=== PATIENT | male | born 1985 | race Caucasian/White ===

== ENCOUNTER 2020-06-01 18:05 | Emergency (ER) | payer OTHER, SELFPAY ==
[2020-06-01 19:47] VITALS: BP 106/79; PULSE 73; RESP 16; TEMP 37.1; O2SAT 98; BMI 22.6
[2020-06-01 19:58] VITALS: BP 108/45; PULSE 69; RESP 18; TEMP 37.1; O2SAT 96
--- NOTE | 2020-06-01 20:43 | ED_ITS ---
HPI - General Adult General Chief complaint: General Medical Stated complaint: ?flatwork Time Seen by Provider: 06/01/20 20:23 Source: patient Mode of arrival: ambulatory Limitations: no limitations History of Present Illness HPI narrative: Patient comes emergency room stating that he has been passing foot wounds and liver flukes in the stool for a month. Patient has no abdominal pain, no vomiting, no diarrhea, no anal itching Related Data Allergies Allergy/AdvReac Type Severity Reaction Status Date / Time amoxicillin [AMOXICILLIN] Allergy Unknown HIVES Unverified 01/31/20 17:33 Review of Systems Review of Systems: Constitutional : No Weight loss, No Fever, No Chills, No Night Sweats, No Fatigue, No Malaise ENT/Mouth : No Hearing loss, No Ear Pain, No Nasal Congestion, No Sinus Pain, No Hoarseness, No sore throat, No Rhinorrhea, No Swallowing Difficulty Eyes: No Eye Pain, No Swelling, No Redness, No Foreign Body, No Discharge, No Vision Changes Cardiovascular : No Chest Pain, No SOB, No Dyspnea on Exertion, No Orthopnea, No Edema, No Palpitations Respiratory : No Cough, No Sputum, No Wheezing, No Smoke Exposure, No Dyspnea Gastrointestinal : No Nausea, No Vomiting, No Diarrhea, No Constipation, No abdominal Pain, No Hematochezia, No Melena, states he has been passing more arms in the stool Genitourinary : no irregular bleeding, No Dysuria, No Urinary Frequency, No Hematuria, No Urinary Incontinence, No Urgency, No Flank Pain, No Urinary Flow Changes, No Hesitancy Musculoskeletal : No joint pain, No Myalgias, No Joint Swelling Skin : No Skin Lesions, No rash Neuro : No Weakness, No Numbness, No Paresthesias, No Loss of Consciousness, No Dizziness, No Headache Psych : No Anxiety/Panic, No Depression, No SI/HI/AH/VH, No Social Issues, Heme/Lymph: No Bruising, No Bleeding,No Lymphadenopathy Endocrine : No Polyuria, No Polydipsia, No Temperature Intolerance [facility] Past Medical History Medical History (Updated 06/01/20 @ 22:49 by Diana Perkins MD) Hepatitis C Mood disorder Opiate abuse, continuous Surgical History (Updated 06/01/20 @ 19:51 by Lisa Guy) H/O hernia repair Social History Social History Smoking Status: Current every day smoker Substance Use Type: Former Substance User and Marijuana Advance Directives: No Advance Directives Information Provided: No Physical Exam Vital Signs: Vital Signs: Last Vital Signs Temp 98.7 F 06/01/20 19:58 Pulse 69 06/01/20 19:58 Resp 18 06/01/20 19:58 BP 108/45 L 06/01/20 19:58 Pulse Ox 96 06/01/20 19:58 Body Mass Index 22.6 Appearance: Alert. Oriented X3. No acute distress. Eyes: Pupils equal, round and reactive to light. ENT: Pharynx normal. Neck: Normal inspection. Neck supple. No lymph nodes noted. No crepitus CVS: Normal heart rate and rhythm. Pulses normal. Normal S1 and S2 Respiratory: No respiratory distress. Breath sounds normal. No Wheezing. No rales Abdomen: Soft and nontender. No rigidity. No distention. good BS x4 Skin: Skin warm and dry. Normal skin color. Normal skin turgor. Extremities: No lower extremity edema. No lower extremity edema. No Lacerations. No Rash Neuro: Oriented X 3. No motor deficit. No sensory deficit. Moving all extermities. No slurred speech. Course Course Course Narrative: I discussed the labs with the patient, hematology labs do not suggest any kind of parasitic infection. I discussed with the patient that he needs to follow up with his primary care physician. Patient's elevated LFTs, likely secondary to hepatitis-C. I discussed with the patient that he needs to have a PCP so he can have close follow-up for his hepatitis-C as well. Information for new PCPs were given to the patient Medical Decision Making Lab Data Result diagrams: 06/01/20 21:15 06/01/20 21:15 Labs: Lab Results 06/01/20 06/01/20 Range/Units 21:15 21:15 WBC 8.4 (4.8-10.8) X10*3/uL RBC 3.88 L (4.60-5.80) X10*6/uL Hgb 12.6 L (14.0-18.0) g/dl Hct 36.9 L (42-52) % MCV 95.1 (80-98) fL MCH 32.5 (27.0-33.0) pg MCHC 34.1 (31.0-36.0) g/dl RDW 12.3 (11.0-16.0) % Plt Count 193 (160-400) X10*3/uL MPV 9.3 L (9.4-12.4) fL Immature Gran % (Auto) 0.1 (0.0-0.4) % Neut % (Auto) 59.6 (45-73) % Lymph % (Auto) 32.8 (20-40) % [place] % (Auto) 6.7 (2-11) % Eos % (Auto) 0.6 (0-4) % Baso % (Auto) 0.2 (0-2) % Lymph # (Auto) 2.8 (1.2-4.9) X10*3/uL [place] # (Auto) 0.6 (0.1-1.2) X10*3/uL Eos # (Auto) 0.1 (0.0-0.4) X10*3/uL Baso # (Auto) 0.0 (0.0-0.2) X10*3/uL Abs Immat Gran (auto) 0.01 (0.00-0.03) X10*3/uL Absolute Neuts (auto) 5.0 (2.0-8.3) X10*3/uL Absolute Nucleated RBC 0.000 (0.0-0.012) X10*3/uL Nucleated RBC % (auto) 0.0 (0.0-0.2) /100WBC Sodium 142 (135-145) mmol/L Potassium 4.2 (3.3-5.1) mmol/l Chloride 106 (96-108) mmol/L Carbon Dioxide 29 (22-29) mmol/L Anion Gap 11 L (12-20) BUN 12 (9-16) mg/dL Creatinine 0.78 (0.5-1.4) mg/dL Estim Creat Clear Calc 129.9 Estimated GFR > 60 Random Glucose 80 (60-115) mg/dL Calcium 8.5 (8.4-10.2) mg/dL Total Bilirubin 0.3 (0.0-1.0) mg/dL Direct Bilirubin 0.2 (0.0-0.5) mg/dL AST 96 H (5-37) U/L ALT 154 H (0-40) U/L Alkaline Phosphatase 61 (39-117) U/L Total Protein 6.8 (6.5-8.0) g/dL Albumin 4.2 (3.5-5.0) g/dL Discharge Plan Discharge Clinical Impression: Normal physical exam Patient Disposition: Home, Self-Care Instructions: Normal Exam (ED) Additional Instructions: Please call to make an appointment with a new primary care physician. Please follow-up with your primary care physician tomorrow. If you have any worsening or new symptoms, please return to the emergency room or call 911
[2020-06-01 21:21] LABS: MANUAL DIFF FLAG NO
[2020-06-01 21:24] LABS: Basophils Percent Auto 0.2 % (0-2); Eosinophils Absolute Auto 0.1 X10*3/uL (0.0-0.4); Eosinophils Percent Auto 0.6 % (0-4); Hematocrit 36.9 % (42-52); Hemoglobin 12.6 g/dl (14.0-18.0); Imm Gran Abs Auto 0.01 X10*3/uL (0.00-0.03); Imm Gran Pct Auto 0.1 % (0.0-0.4); Lymphocytes Absolute Auto 2.8 X10*3/uL (1.2-4.9); Lymphocytes Percent Auto 32.8 % (20-40); Mean Corpuscular HGB Conc 34.1 g/dl (31.0-36.0); Mean Corpuscular Hemoglobin 32.5 pg (27.0-33.0); Mean Corpuscular Volume 95.1 fL (80-98); Mean Platelet Volume 9.3 fL (9.4-12.4); Monocytes Absolute Auto 0.6 X10*3/uL (0.1-1.2); Monocytes Percent Auto 6.7 % (2-11); Neutrophils Percent Auto 59.6 % (45-73); Platelet Count 193 X10*3/uL (160-400); Red Blood Count 3.88 X10*6/uL (4.60-5.80); Red Cell Distribution Width 12.3 % (11.0-16.0); White Blood Count 8.4 X10*3/uL (4.8-10.8)
[2020-06-01 21:59] LABS: Alanine Aminotransferase 154 U/L (0-40); Albumin Level 4.2 g/dL (3.5-5.0); Alkaline Phosphatase 61 U/L (39-117); Anion Gap 11 (12-20); Aspartate Amino Transferase 96 U/L (5-37); Bilirubin Direct 0.2 mg/dL (0.0-0.5); Bilirubin Total 0.3 mg/dL (0.0-1.0); Blood Urea Nitrogen 12 mg/dL (9-16); Calcium 8.5 mg/dL (8.4-10.2); Carbon Dioxide 29 mmol/L (22-29); Chloride 106 mmol/L (96-108); Creatinine Clr Calc Pharmacy 129.9; Estimated Glomerular Filt Rate > 60; Glucose Random 80 mg/dL (60-115); Potassium 4.2 mmol/l (3.3-5.1); Sodium 142 mmol/L (135-145); Total Protein 6.8 g/dL (6.5-8.0)
--- NOTE | 2020-06-01 23:11 | PC.NURSE ---
PT NOTE IN ROOM AT FOR D/C PAPERWORK.
== END 2020-06-01 23:13 | disposition home or self-care (01) ==
PROVIDERS: Emergency Provider Emergency Medicine
DX: R19.7 Diarrhea, unspecified (principal)
CPT/HCPCS: 36415; 80048; 80076; 85025; 99283; 99284

== ENCOUNTER 2020-07-12 09:26 | Emergency (ER) | payer OTHER, SELFPAY ==
--- NOTE | ~2020-07-12 | XR_ITS ---
EXAMINATION: XR HAND, RIGHT CLINICAL INFORMATION: Trauma COMPARISON: None TECHNIQUE: PA, lateral, and oblique views of the right hand. FINDINGS: The bones and soft tissues are normal. No fracture. Alignment is anatomic. Joint spaces are maintained. No erosions or soft tissue calcifications. XR/XR hand RT min 3V IMPRESSION: No fracture.
[2020-07-12 09:43] VITALS: BP 124/101; PULSE 89; RESP 16; TEMP 36.8; O2SAT 98; BMI 22.8
[2020-07-12] MEDS: Ibuprofen 600 MG TABLET PO (10:19)
--- NOTE | 2020-07-12 10:48 | ED.EXTPRO ---
HPI - Extremity Problem General Chief complaint: Extremity Injury, Upper Stated complaint: finger injury Time Seen by Provider: 07/12/20 10:03 Source: patient Mode of arrival: ambulatory Limitations: no limitations History of Present Illness HPI Narrative: Patient tells me 3 weeks ago he was working and a nail went under his right 3rd finger nail bed. He tells me he pulled away from the nail and the nail appeared intact. Since then some swelling and discomfort described as burning. There is no erythema per patient. No fevers or chills. His last tetanus was 2 years ago Related Data Previous Rx's Medication Instructions Recorded ciprofloxacin HCl [Cipro] 500 mg PO BID #14 tab 07/12/20 ibuprofen 600 mg PO Q6H PRN #20 tab 07/12/20 Allergies Allergy/AdvReac Type Severity Reaction Status Date / Time amoxicillin [AMOXICILLIN] Allergy Unknown HIVES Unverified 01/31/20 17:33 Review of Systems Review of Systems: Yes all other systems are reviewed and are negative Constitutional: Constitutional: Reports no additional constitutional complaints, Denies body ache(s), Denies chills, Denies fever(s), Denies headache(s) and Denies weakness Eyes: Eyes: Reports no additional eye complaints and Denies change in vision ENT: Reports system reviewed and no additional complaints, except as documented, Denies dizziness, Denies headache(s), Denies nasal congestion, Denies nasal discharge and Denies neck pain Cardiovascular: Cardiovascular: Reports no additional cardiovascular complaints, Denies chest pain, Denies leg edema and Denies dyspnea Respiratory: Respiratory: Reports no additional respiratory complaints, Denies cough and Denies dyspnea Gastrointestinal: Gastrointestinal: Reports no additional gastrointestinal complaints, Denies abdominal pain, Denies diarrhea, Denies nausea and Denies vomiting Genitourinary: Genitourinary: Denies urinary incontinence Musculoskeletal: Musculoskeletal: Reports no additional musculoskeletal complaints, Denies back pain, Denies arthralgias, Denies joint swelling, Denies neck pain, Denies numbness and Denies tingling Integumentary/Breasts: Skin/Breast: Reports system reviewed and no additional complaints, except as docu, Reports swelling and Denies rash Neurologic: Reports system reviewed and no additional complaints, except as documented, Denies Abnormal speech present, Denies dizziness, Denies headache(s), Denies numbness, Denies tingling and Denies weakness PMFSH Past Medical History Attestation statement: The following information was validated with the patient. Source: old records reviewed and nursing notes reviewed Medical History Hepatitis C Mood disorder Opiate abuse, continuous Surgical History H/O hernia repair Social History Social History Smoking Status: Current every day smoker Substance Use Type: Former Substance User and Marijuana Advance Directives: No Advance Directives Information Provided: No Physical Exam Vital Signs: Vital Signs: Last Vital Signs Temp 98.3 F 07/12/20 09:43 Pulse 89 07/12/20 09:43 Resp 16 07/12/20 09:43 BP 124/101 H 07/12/20 09:43 Pulse Ox 98 07/12/20 09:43 Body Mass Index 22.8 Const: General: cooperative, healthy appearing, comfortable and no acute distress Orientation/consciousness: patient oriented x3 Limitations: no limitations HENMT: Head: Yes normal to inspection Ears: hearing grossly normal bilaterally General nose exam: Normal external nose present Face and sinus: Yes normal facial exam Mouth: Normal oral and palatal mucosa present Throat: Yes posterior oropharynx normal Eyes: General: appearance normal, both eyes and all related structures Pupils: Equal, round and reactive pupils present Neck: Neck: Yes normal visual inspection Chest: Chest palpation & inspection: normal inspection of the chest Resp: Effort & Inspection: normal respiratory effort Auscultation: clear to auscultation bilaterally Cardio: Rate: regular rate Rhythm: regular rhythm Peripheral pulses: Peripheral pulses 2+ throughout GI: Inspection: Yes normal to inspection Palpation (GI): Soft to palpation and nontender Auscultation: normal bowel sounds Back/Spine/Pelvis: Thoracic/Lumbar Spine: thoracic and lumbar spine normal to inspection Skin: General skin exam: no rashes or lesions noted Neuro: General: patient oriented x3, no focal motor deficits and normal sensation to monofilament Cranial nerves: Yes Equal, round and reactive pupils present Cognition (Neuro): normal cognition Speech: No Abnormal speech present Gait exam (Neuro): Normal gait present Motor exam (neuro): 5/5 motor strength present throughout Extrem: Other: To the distal 3rd digit there is some mild swelling and discomfort. Patient tells me that he has pain which radiates up the hand. There is no obvious swelling over the hand or erythema. Full range of motion. No pain worth flexion or extension of the wrist. General: Yes normal to inspection Course Course Course Narrative: R 3rd digit swelling, pain s/p puncture wound under the nail bed 3 weeks ago. X-ray shows no acute finding. There is some local swelling and discomfort so will treat with oral antibiotics and analgesia. Tetanus UTD. Reviewed worrisome signs and symptoms of when to return to the emergency department. Comfortable discharge home. MDM - Extremity (Nontraumatic) Imaging Data hand xray: Attestation: I personally reviewed and interpreted this imaging study as follows: Radiologist's impression: [address] [id number] ReportSigned Patient: Bradly Erickson MMR#: [id number]: 1985Acct:[id number]/Sex: 34 / MADM Date: 07/12/20Loc: HO.EDAttending Dr: Ordering Physician: RUTHY RENEE NP Date of Service: 07/12/20 Procedure(s): XR hand RT min 3V Accession Number(s): [id number] cc: RUTHY RENEE NP~ EXAMINATION: XR HAND, RIGHT CLINICAL INFORMATION: Trauma COMPARISON: None TECHNIQUE: PA, lateral, and oblique views of the right hand. FINDINGS: The bones and soft tissues are normal. No fracture. Alignment is anatomic. Joint spaces are maintained. No erosions or soft tissue calcifications. XR/XR hand RT min 3V IMPRESSION: No fracture. Discharge Plan Discharge Clinical Impression: Puncture wound Patient Disposition: Home, Self-Care Instructions: Puncture Wound (ED) Additional Instructions: Warm soaks four times daily with epsom salts Prescriptions: New ciprofloxacin HCl [Cipro] 500 mg tablet 500 mg PO BID Qty: 14 RF: 0 ibuprofen 600 mg tablet 600 mg PO Q6H PRN (Reason: pain) Qty: 20 RF: 0 Referrals: Mamadou Cantu MD [Primary Care Provider] - 2 days Interventions: ED Discharge Assessment Last Done: 07/12/20 10:59 Discharge Date/Time: 07/12/20 11:00
== END 2020-07-12 11:00 | disposition home or self-care (01) ==
PROVIDERS: Emergency Provider Emergency Medicine Emergency Medical Services; PCP Internal Medicine
DX: S61.232A Puncture wound without foreign body of right middle finger without damage to nail, initial encounter (principal); X58.XXXA Exposure to other specified factors, initial encounter; Y93.9 Activity, unspecified; Y92.009 Unspecified place in unspecified non-institutional (private) residence as the place of occurrence of the external cause; Y99.9 Unspecified external cause status; F11.10 Opioid abuse, uncomplicated; Z86.19 Personal history of other infectious and parasitic diseases; F17.200 Nicotine dependence, unspecified, uncomplicated
CPT/HCPCS: 73130; 99283

== ENCOUNTER 2020-07-16 11:39 | Emergency (ER) | payer OTHER, SELFPAY ==
[2020-07-16 12:13] VITALS: BP 120/61; PULSE 74; RESP 16; TEMP 36.3; O2SAT 98; BMI 22.8
--- NOTE | 2020-07-16 13:23 | ED_ITS ---
HPI - Extremity Problem General Chief complaint: Extremity Injury, Upper Stated complaint: infection rt middle finger Time Seen by Provider: 07/16/20 13:23 Source: patient Mode of arrival: ambulatory Limitations: no limitations History of Present Illness HPI Narrative: Patient seen here 5 days ago after he had a puncture wound type injury to the right middle finger directly under the nail at work and he was seen here had x-rays which were negative for foreign body or fracture subsequently sent home after given tetanus vaccination and Cipro for 7 days states the finger has become in slightly swollen and uncomfortable. No redness. No discharge. MD Complaint: extremity swelling (Right middle finger swelling at the tip) Onset (ago): day(s) Location: right Quality: aching Radiation: distal Relieving factors: immobilization and movement Exacerbating factors: palpation Associated symptoms: denies other symptoms Related Data Previous Rx's Medication Instructions Recorded ciprofloxacin HCl [Cipro] 500 mg PO BID #14 tab 07/12/20 ibuprofen 600 mg PO Q6H PRN #20 tab 07/12/20 doxycycline monohydrate 100 mg PO BID 10 Days #20 cap 07/16/20 Allergies Allergy/AdvReac Type Severity Reaction Status Date / Time amoxicillin [AMOXICILLIN] Allergy Unknown HIVES Unverified 01/31/20 17:33 Review of Systems Review of Systems: Constitutional: No Weight loss, No Fever, No Chills, No Night Sweats, No Fatigue, No Malaise ENT/Mouth: No Hearing loss, No Ear Pain, No Nasal Congestion, No Sinus Pain, No Hoarseness, No sore throat, No Rhinorrhea, No Swallowing Difficulty Eyes: No Eye Pain, No Swelling, No Redness, No Foreign Body, No Discharge, No Vision Changes Cardiovascular: No Chest Pain, No SOB, No Dyspnea on Exertion, No Orthopnea, No Edema, No Palpitations Respiratory: No Cough, No Sputum, No Wheezing, No Smoke Exposure, No Dyspnea Gastrointestinal: No Nausea, No Vomiting, No Diarrhea, No Constipation, No abdominal Pain, No Hematochezia, No Melena Genitourinary: Negative Musculoskeletal: No joint pain, No Myalgias, No Joint Swelling Skin: No Skin Lesions, No rash, as noted per HPI Neuro: Negative Psych: No Social Issues Heme/Lymph: No Bruising, No Bleeding,No Lymphadenopathy Endocrine: No Polyuria, No Polydipsia, No Temperature Intolerance Yes all other systems are reviewed and are negative [facility] Past Medical History Medical History Hepatitis C Mood disorder Opiate abuse, continuous Surgical History H/O hernia repair Social History Social History Smoking Status: Current every day smoker Substance Use Type: Former Substance User and Marijuana Advance Directives: No Advance Directives Information Provided: No Physical Exam Vital Signs: Vital Signs: Last Vital Signs Temp 97.4 F 07/16/20 12:13 Pulse 74 07/16/20 12:13 Resp 16 07/16/20 12:13 BP 120/61 07/16/20 12:13 Pulse Ox 98 07/16/20 12:13 Body Mass Index 22.8 Reviewed Const: General: cooperative and healthy appearing; No acute distress or intoxicated appearing Nutritional Appearance: average body habitus Orientation/consciousness: patient oriented x3 HENMT: Head: Yes normal to inspection Ears: hearing grossly normal b ilaterally Eyes: General: appearance normal, both eyes and all related structures Visual Duque: normal visual duque by confrontation Resp: Effort & Inspection: normal respiratory effort Auscultation: clear to auscultation bilaterally Cardio: Jugular venous distension: no JVD Rhythm: regular rhythm Heart sounds: S1 normal heart sound present and S2 normal heart sound present : General: Yes no CVA tenderness Back/Spine/Pelvis: Back: no CVA tenderness Skin: General skin exam: no rashes or lesions noted Neuro: General: patient oriented x3 Extrem: Other: General: Yes normal to inspection Hand/finger images: 1. Appears to have a slight scab here from the previous puncture wound and soft area and slightly raise nail consistent with Subungual abscess. Course Course Course Narrative: Brief presenting status post puncture wound to the bed of the right middle finger nail with negative initial x-ray for foreign body or fracture started on Cipro and her given his amoxicillin allergy however the site is now more tender and slightly swollen as noted in the pictures appears that he had a small Subungual hematoma converted to abscess. Otherwise no overt erythema cellulitis. [place] much better after de fan the scabbed area and expressing small amount purulent discharge. Full range of motion otherwise cap refill within norms. Will change antibiotic to doxycycline no need for any additional repeat images at this time will recheck in 2 days. He is agreeable to returning here for recheck. Procedures Abscess I/D Site: upper extremity (Right middle finger) Side (if applicable): right Local Anesthetic: lidocaine 1% (Hematoma block) Amount of anesthesia used (mL): 5 Amount of fluid expressed (mL): 1 Packing used?: none Complications: other (The scabbed area de roofed and able to express small klaudia unt of purulent discharge as noted in the exam pressure.) Discharge Plan Discharge Clinical Impression: Abscess around fingernail of right hand Patient Disposition: Home, Self-Care Instructions: Abscess Incision and Drainage (DC) Additional Instructions: States start the new antibiotic as prescribed Warm compresses Return in 2 days for recheck Return sooner if any concerns or worsening symptoms Thank you Prescriptions: New doxycycline monohydrate 100 mg capsule 100 mg PO BID 10 Days Qty: 20 RF: 0 No Action ciprofloxacin HCl [Cipro] 500 mg tablet 500 mg PO BID Qty: 14 RF: 0 ibuprofen 600 mg tablet 600 mg PO Q6H PRN (Reason: pain) Qty: 20 RF: 0 Referrals: Satnam Alcala, [facility] HELPER [Emergency Midlevel Provider] - 2 days (For recheck) Interventions: ED Discharge Assessment Last Done: 07/16/20 14:52 Discharge Date/Time: 07/16/20 14:53
[2020-07-16] MEDS: Lidocaine HCl 1 % MPF 5 ML VIAL SUBCUT (14:09)
== END 2020-07-16 14:53 | disposition home or self-care (01) ==
PROVIDERS: Emergency Provider Emergency Medicine; PCP Internal Medicine
DX: L03.011 Cellulitis of right finger (principal); M79.644 Pain in right finger(s); F17.200 Nicotine dependence, unspecified, uncomplicated; Z71.6 Tobacco abuse counseling; Z79.899 Other long term (current) drug therapy
CPT/HCPCS: 26010; 99283

== ENCOUNTER 2023-09-19 20:02 | Emergency (ER) | payer OTHER, SELFPAY ==
[2023-09-19 21:21] VITALS: BP 126/71; PULSE 73; RESP 14; TEMP 36.6; O2SAT 96; BMI 22.3
--- NOTE | 2023-09-20 04:11 | ED_ITS ---
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 Onset (ago): hour(s) (OUTER DIAMETER GRINDER TOOL) Extremity Location: right: thigh Place: home Patient tetanus UTD: No Context: accidental Associated symptoms: none Treatments prior to arrival: bandage Related Data Previous Rx's ?Medication ?Instructions ?Recorded ciprofloxacin HCl 500 mg tablet 500 mg PO BID #14 tabs 07/12/20 (Cipro) ibuprofen 600 mg tablet 600 mg PO Q6H PRN pain #20 tabs 07/12/20 doxycycline monohydrate 100 mg 100 mg PO BID 10 days #20 caps 07/16/20 capsule Allergies Allergy/AdvReac Type Severity Reaction Status Date / Time amoxicillin [AMOXICILLIN] Allergy Unknown HIVES Verified 09/19/23 21:26 Review of Systems Review of Systems: Constitutional : No Fever, No Chills, Cardiovascular : No Chest Pain, No SOB Respiratory : No Dyspnea Gastrointestinal : No abdominal pain Musculoskeletal : No Joint Swelling Skin : No rash, positive skin laceration Neuro : No Weakness, No Numbness Psych : No SI/HI PMFSH Past Medical History Attestation statement: The following information was validated with the patient. Source: old records reviewed Medical History Mood disorder Opiate abuse, continuous Hepatitis C Surgical History H/O hernia repair Social History Social History Substance Use Type: Former Substance User and Marijuana Advance Directives: No Advance Directives Information Provided: No Do you have a plan to hurt others: No Plan Physical Exam Vital Signs: Vital Signs: Last Vital Signs Temp 97.8 F 09/19/23 21:21 Pulse 73 09/19/23 21:21 Resp 14 09/19/23 21:21 BP 126/71 09/19/23 21:21 Pulse Ox 96 09/19/23 21:21 O2 Del Method Room Air 09/19/23 21:21 BMI result Body Mass Index 22.3 Appearance: Alert. Oriented X3. No acute distress. Eyes: Pupils equal, round and reactive to light. ENT: Pharynx normal. Neck: Normal inspection. Neck supple. CVS: Normal heart rate and rhythm. Pulses normal. Respiratory: No respiratory distress. Breath sounds normal. Abdomen: Soft and non-tender. Skin: Skin warm and dry. Normal skin color. Normal skin turgor. Extremities: R mid thigh 2.5cm superficial laceration down to subQ distal NV intact Neuro: Oriented X 3. No motor deficit. No sensory deficit. Medical Decision Making Medical Decision Making MDM Narrative: 38 yo male with PMH of hep C and opiate use disorder here with c/o accidental la ceration to R thigh from wood carving knife at this time NV intact no concern for deeper space trauma will repair and update Tdap Differential Diagnosis Differential Diagnoses: The differential diagnosis associated with the presentation includes laceration External Record Review External record reviewed: Inpatient record Procedures Laceration Laceration 1: Site: lower extremity Side (If applicable): right Size (cm): 2.5 Description: linear Depth: simple, single layer Local Anesthetic: lidocaine 1% Amount of anesthesia used (mL): 1 Pre-repair: wound explored, irrigated extensively and deep structures intact Skin layer closed with: other (4-0 nylon 3 sutures) Discharge Plan Discharge Clinical Impression: Laceration Patient Disposition: Home, Self-Care Instructions: Laceration (ED) Additional Instructions: remove stitches in 7 days primary care or urgent care okay to shower monitor for redness, yellow drainage, fevers or signs of infection Prescriptions: No Action ciprofloxacin HCl [Cipro] 500 mg tablet 500 mg PO BID Qty: 14 0RF ibuprofen 600 mg tablet 600 mg PO Q6H PRN (Reason: pain) Qty: 20 0RF doxycycline monohydrate 100 mg capsule 100 mg PO BID 10 Days Qty: 20 0RF Stand Alone Forms: Work/School Release Interventions: LWBS Worksheet Last Done: 09/20/23 02:15 Print Language: Hungarian
[2023-09-20] MEDS: Diphth,Pertus(ACell),Tet Adult 0.5 ML SYRINGE IM (04:25)
[2023-09-20] MEDS: Lidocaine HCl 1 % MPF 5 ML VIAL SUBCUT (04:25)
[2023-09-20 04:31] VITALS: BP 117/68; PULSE 72; RESP 16; TEMP 36.6; O2SAT 98
== END 2023-09-20 04:32 | disposition home or self-care (01) ==
PROVIDERS: Emergency Provider Emergency Medicine; PCP Nurse Practitioner Family
DX: S71.111A Laceration without foreign body, right thigh, initial encounter (principal); W26.0XXA Contact with knife, initial encounter; Y93.9 Activity, unspecified; Y92.009 Unspecified place in unspecified non-institutional (private) residence as the place of occurrence of the external cause; Y99.9 Unspecified external cause status
CPT/HCPCS: 12001; 90471; 90715; 99282; 99284